=== PATIENT | male | born 1995 | race Caucasian/White ===

== ENCOUNTER 2019-01-23 19:50 | Emergency (ER) | payer OTHER ==
[2019-01-23] MEDS ORDERED: TETANUS/DIPHTHERIA/PERTUSSIS 0.5 ML SYRINGE IM ONE (20:14)
--- NOTE | 2019-01-23 20:14 | ED Physician Documentation ---
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 He got his hand caught between 2 sliding pieces of glass at work today and has mo dest pain over the right middle finger. No other injuries. He is a type I diabetic who is well controlled. Tetanus unclear, probably >5yrs) Review of Systems Constitutional: reports: Reviewed and negative Cardiac: reports: Reviewed and negative Respiratory: reports: Reviewed and negative PD PAST MEDICAL HISTORY - Past Medical History Past Medical History: No - Past Surgical History Past Surgical History: No - Present Medications Home Medications: Ambulatory Orders Medication Instructions Recorded Confirmed Lisinopril [Prinivil] 10 mg PO 01/23/19 - Allergies Allergies/Adverse Reactions: Allergies Allergy/AdvReac Type Severity Reaction Status Date / Time No Known Drug Allergies Allergy Verified 01/23/19 19:56 - Social History Does the pt smoke?: No Smoking Status: Never smoker PD ED PE NORMAL - Vitals Vital signs reviewed: Yes - General General: Alert and oriented X 3, No acute distress - Extremities Extremities: Other (Interesting wound of R middle finger. There is a avulsion of the proximal nail without affecting the distal nail. Looks like it proximal nail was shaved off. No deformity. NVI at tip.) - Neuro Neuro: Alert and oriented X 3, Normal speech Results - Vitals Vitals: Vital Signs - 24 hr 01/23/19 01/23/19 19:52 20:23 Temperature 37.3 C Heart Rate 96 69 Respiratory 19 20 Rate Blood Pressure 145/101 H 101/39 L O2 Saturation 98 100 Oxygen O2 Source Room air - Rads (name of study) R 3rd finger Radiology: EMP read contemporaneously (no frx) Departure - Departure Disposition: 01 Home, Self Care Clinical Impression: Nail avulsion, finger Qualifiers: Encounter type: initial encounter Qualified Code(s): S61.309A - Unspecified open wound of unspecified finger with damage to nail, initial encounter Condition: Good Record reviewed to determine appropriate education?: Yes Plan of Treatment: Keep the current dressing on for 2 days, until Friday at which point he should not have any significant bleeding, but keep it covered with bacitracin ointment and a Band-Aid. Return for signs of infection such as increased pain, redness, drainage. Instructions: ED Wound Care Comments: Keep the current dressing on for 2 days, until Friday at which point he should not have any significant bleeding, but keep it covered with bacitracin ointment and a Band-Aid. Return for signs of infection such as increased pain, redness, drainage. Discharge Date/Time: 01/23/19 20:35
[2019-01-23 20:24] VITALS: BP 101/39
--- NOTE | 2019-01-23 20:41 | XRAY Report ---
Reason: finger inj Procedure Date: 01/23/2019 Accession Number: [id number] / [id number] Procedure: XR - Finger(s) RT CPT Code: FULL RESULT: EXAM: RIGHT DIGIT RADIOGRAPHY EXAM DATE: 01/23/2019 08:27 PM. CLINICAL HISTORY: Finger inj. COMPARISON: None. TECHNIQUE: 3 views. FINDINGS: Bones: No acute fractures or suspicious bone lesions. Joints: No subluxations. Soft Tissues: No abnormal radiopaque foreign body. IMPRESSION: No acute radiographic abnormalities. [facility]
[2019-01-23] MEDS ORDERED: BACITRACIN OINT TOP ONE (20:43)
== END 2019-01-23 20:35 | disposition home or self-care (01) ==
LOC: ED 19:50
DX: S61.212A Laceration without foreign body of right middle finger without damage to nail, initial encounter (principal); W23.0XXA Caught, crushed, jammed, or pinched between moving objects, initial encounter; Y92.512 Supermarket, store or market as the place of occurrence of the external cause; Y99.0 Civilian activity done for income or pay
CPT/HCPCS: 73140; 90471; 90715; 99282; 99283; A9270